=== PATIENT | male | born 1975 | race Caucasian/White ===

== ENCOUNTER 2017-10-06 09:58 | Day surgery (SDC) | payer BC ==
[2017-09-26 12:51] VITALS: BMI 44.8
[2017-10-06] MEDS ORDERED: oxyCODONE HCL 10 MG SUSTAINED ACTING TABLET PO STA (11:35)
[2017-10-06] MEDS ORDERED: MIDAZOLAM HCL 2 MG/2 ML SINGLE DOSE VIAL ONE (12:56)
[2017-10-06] MEDS ORDERED: BUPIVACAINE HCL/PF 2.5 MG/ML - 30 ML VIAL IJ ONE ×2 (12:56→12:59)
[2017-10-06] MEDS ORDERED: DEXAMETHASONE SOD PHOSPHATE/PF 10 MG/ML SDV ONE (12:56)
[2017-10-06] MEDS ORDERED: LIDOCAINE 1%/EPI 1:100000 (20 ML MULTI DOSE VIAL) ONE (12:59)
[2017-10-06] MEDS ORDERED: LIDOCAINE HCL 1%, 10 MG/ML (20ML VIAL) ONE (12:59)
[2017-10-06] MEDS ORDERED: THROMBIN (BOVINE) 5,000 UNIT VIAL TP ONE ×2 (12:59→15:01)
[2017-10-06] MEDS ORDERED: methylPREDNISolone ACET (DEPO) 40 MG/1 ML VIAL ONE (12:59)
[2017-10-06] MEDS ORDERED: ceFAZolin SODIUM 1 GM VIAL ONE (13:54)
[2017-10-06] MEDS ORDERED: ONDANSETRON 4 MG/2 ML VIAL ONE (13:56)
[2017-10-06] MEDS ORDERED: DEXAMETHASONE SOD PHOSPHATE 4 MG/1 ML VIAL ONE (13:56)
[2017-10-06] MEDS ORDERED: LIDOCAINE 1%/EPI 1:100000 (50 ML MULTI DOSE VIAL) INF ONE (14:09)
[2017-10-06] MEDS ORDERED: methylPREDNISolone ACET (DEPO) 40 MG/1 ML VIAL IM ONE (14:58)
[2017-10-06] MEDS ORDERED: BUPIVACAINE HCL/PF 0.25% (2.5MG/ML) 10 ML VIAL IJ ONE (15:08)
--- NOTE | 2017-10-06 15:54 | HP ---
History & Physical Update - History History: No Change - Physical Physical: No Change - Assessment Assessment: No Change - Plan Plan: No Change
--- NOTE | 2017-10-06 15:56 | OP ---
Operative Note - Note: Operative Date: 10/06/17 Pre-Operative Diagnosis: L4-S1 stenosis with radiculopathy Operation: L4-S1 laminectomy (bilateral) Post-Operative Diagnosis: Same as Pre-op Surgeon: Miki Jacobo Interface Analyst: Nelson Fulton Anesthesiologist/APPARATUS REPAIR MECHANIC: Joanne Morales (TLIP ) Anesthesia: Spinal Estimated Blood Loss (mls): 20 Fluid Volume Replaced (mls): 800 Operative Report Dictated: Yes
--- NOTE | 2017-10-06 15:57 | SURG ---
Surgery Firesetter Note Firesetter: Nelson Fulton PA-C Date of Service: 10/06/17 Diagnosis: L4-S1 spinal stenosis w/ radiculopathy Procedure: L4-S1 laminectomy (bilateral) I was present for the entirety of the operative procedure. For further detail, please refer to operative report. Visit type - Case Type Case Type: Scheduled Admission - New patient This patient is new to me today: Yes Date on this admission: 10/06/17
[2017-10-06] MEDS ORDERED: oxyCODONE HCL 5 MG TABLET PO PRN (16:01)
[2017-10-06] MEDS ORDERED: ONDANSETRON 4 MG/2 ML VIAL IVPUSH PRN (16:01)
[2017-10-06] MEDS ORDERED: LACTATED RINGERS SOLUTION 1,000 ML IV SCH (16:15)
[2017-10-06 18:17] VITALS: BP 111/74; PULSE 78; TEMP 98.2
--- NOTE | 2017-10-07 08:26 | OP ---
DATE OF OPERATION: 10/06/2017 PREOPERATIVE DIAGNOSES: 1. Spinal stenosis at L4-5 and L5-S1. 2. Left foot drop. POSTOPERATIVE DIAGNOSES: 1. Spinal stenosis at L4-5 and L5-S1. 2. Left foot drop. PROCEDURE PERFORMED: Laminectomy at L4-5, L5-S1. SURGEON: Miki Jacobo MD MANUAL ARTS TEACHER: MARQUES Hong ESTIMATED BLOOD LOSS: 50 mL INTRAVENOUS FLUIDS: Per Anesthesia. ANESTHESIA: Spinal/TLIP. COMPLICATIONS: None. DISPOSITION: The patient was brought to PACU in stable condition. INDICATION FOR SURGERY: The patient is a 42-year-old gentleman who has been suffering from pain from his back down his legs. X-rays and MRI were completed which noted that he had spinal stenosis from L4 down to S1. He had gone through an exhaustive course of treatment for this, which included medications, physical therapy as well as injections. Unfortunately, his pain continued to persist despite all this. At this point, risks, benefits, and alternatives were discussed, and the patient consented to surgery as recommended. DESCRIPTION OF PROCEDURE: Patient was brought to the operating room by the Anesthesia staff. After appropriate patient identification was performed, spinal anesthesia was given along with a TLIP block. Patient was able to position himself prone onto the Aman frame with all areas of bony prominences well padded at this time. Two needles were placed into his back to crow off the L4 to S1 segments. X-ray was taken to confirm this as correct. [place] were removed, and 10 mL of lidocaine with epinephrine were injected in his back at this time. His back was prepped and draped in a sterile manner. At this point, a timeout was completed. An incision was made from the top of L4 down to the bottom of S1. Dissection was carried down to the fascia. Fascia was split open at this time, and appropriate retractors were then placed in. A spinal needle was placed onto the L5 lamina to crow off the L5-S1 level. An x-ray was taken to confirm this as correct. The needle was removed, and the microscope was brought in. At this point, the interspinous ligament at L4-5 and L5-S1 was removed. The spinous process at L5 was removed. A bur was used to complete the laminectomy. A complete decompression was performed such that by the end of the procedure the L5 and S1 nerve roots appeared to be well decompressed. All bleeding was well controlled at this time. Steroid was placed over the nerve root. FloSeal was placed over that. The fascia was closed with a No. 1 Vicryl suture. Subcutaneous tissues were closed with 2-0 Vicryl suture. Skin was closed with 3-0 Monocryl suture. Dermabond was applied. Steri-Strips were applied. A sterile dressing was applied. Patient was placed supine on the OR bed and brought to the PACU in stable condition. Ron CANALES/[id number]
== END 2017-10-06 18:26 | disposition home or self-care (01) ==
LOC: FASU 09:58
PROVIDERS: ATTEND Orthopaedic Surgery Orthopaedic Surgery of the Spine
PROC: 01NB0ZZ Release Lumbar Nerve, Open Approach (ICD-10-PCS; principal; 2017-10-06 14:16)
DX: M48.061 Spinal stenosis, lumbar region without neurogenic claudication (principal); M48.07 Spinal stenosis, lumbosacral region; M21.372 Foot drop, left foot
CPT/HCPCS: 72100-TC; 76000-TC; 82962; 94760